=== PATIENT | female | born 1970 | race Caucasian/White ===

== ENCOUNTER 2017-10-29 03:07 | Observation (INO) | payer OTHER ==
[~2017-10-29] VITALS: Ht 167.6 cm; Wt 49.9 kg
[~2017-10-29 03:07] MED LIST: AMOXICILLIN875 M1 PO; BACTRIM DS TAB1 EACH PO; IBUPROFEN800 M1 PO
--- NOTE | 2017-10-29 10:35 | RADIOLOGY REPORT ---
EXAMINATION: XR HIP, RIGHT CLINICAL INFORMATION: Status post right total hip COMPARISON: CT pelvis 06/05/2017 TECHNIQUE: Two views of the right hip. FINDINGS: Right total hip prosthesis is present. There is some air in the subcutaneous tissues. The prosthesis appears to be in good position. No bony fractures are seen. IMPRESSION: The newly placed right hip prosthesis appears in good position without complication.
--- NOTE | 2017-10-29 10:36 | Admission Core Measures ---
Acute Coronary Syndrome (CM) ACS Core Measures Acute Coronary Syndrome Diagnosis No Congestive Heart Failure (NEW) CHF Core Measures Congestive Heart Failure Diagnosis No Cerebrovascular Accident CVA Core Measures CVA/TIA Diagnosis No Venous Thromboembolism VTE Core Michelle (View Protocol) VTE Risk Factors Surgery No Mechanical VTE Prophylaxis d/t N/A MechProphylax Ordered No VTE Pharm Prophylaxis d/t NA PharmProphylax ordered Problem List As ranked by this Provider includes Assessment & Plan 1. Unilateral primary osteoarthritis, right hip HOME MEDS Home Med List No Known Home Medications
[2017-10-29] MEDS ORDERED: COLACE100 M1 PO (10:43)
[2017-10-29] MEDS ORDERED: ASPIRIN EC81 M1 PO (10:43)
[2017-10-29] MEDS ORDERED: DILAUDID2 M1 PO (10:43)
[2017-10-29] MEDS ORDERED: MIRALAX17 G1 PO (10:43)
[2017-10-29] MEDS ORDERED: PRILOSEC OTC20 M1 PO (10:43)
[2017-10-29] MEDS ORDERED: MS CONTIN15 M3 PO (10:43)
--- NOTE | 2017-10-29 10:45 | Patient Discharge Instructions ---
Discharge Instructions General Discharge Information You were seen/treated for: Right hip pain related to unilateral primary osteoarthritis You had these procedures: Right total hip replacement Watch for these problems: Increasing pain despite the use of pain medication Increasing redness, warmth or swelling Drainage of any type from incision Inability to bear weight on operative leg Persistent nausea and vomiting Fever greater than 101.5 degrees Do not soak the wound: Yes No bath, but you may shower: Yes Other wound care: Please keep wound clean and dry. No ointments or lotions of any type on or near incision at any time. No exceptions. Your dressing will be changed by your nurse on the second day after your surgery. Daily dry dressing changes are recommended each day thereafter. Do not soak your wound in a bath or pool at any time until otherwise indicated by your surgeon. You may shower, please dry wound immediately after shower with a clean towel. Special Instructions: Aspirin: You are taking this medication to help prevent blood clot formation. Please take with food to protect your stomach lining. Please take as directed. Constipation: Pain medication can cause constipation. Your surgeon has recommended that you take Colace and miralax each day. You may discontinue this medication if you develop loose stool or diarrhea. If you wish to continue this medication, it is available over the counter. If you are unable to move your bowels after several days, if you are unable to pass gas and are developing bloating, nausea, or vomiting as a result, please contact your doctor. Diet Continue normal diet: Yes Recommended Diet: Regular Activity Full Activity/No Limits: No Activity Self Limited: Yes Pounds, do NOT lift more than: 10 Acute Coronary Syndrome Inclusion Criteria At DC or during hospital stay patient has or had the following: ACS DIAGNOSIS No Discharge Core Measures Meds if any: Prescribed or Continued at Discharge Meds if any: NOT Prescribed or Continued at Discharge Congestive Heart Failure Inclusion Criteria At DC or during hospital stay patient has or had the following: CHF DIAGNOSIS No Discharge Core Measures Meds if any: Prescribed or Continued at Discharge Meds if any: NOT Prescribed or Continued at Discharge Cerebrovascular accident Inclusion Criteria At DC or during hospital stay patient has or had the following: CVA/TIA Diagnosis No Discharge Core Measures Meds if any: Prescribed or Continued at Discharge Meds if any: NOT Prescribed or Continued at Discharge Venous thromboembolism Inclusion Criteria VTE Diagnosis No VTE Type NONE VTE Confirmed by (Test) NONE Discharge Core Measures - Per Current guidelines, there needs to be overlap - treatment for the first 5 days of Warfarin therapy. - If discharged on Warfarin prior to 5 days of - overlap therapy, the patient will need to be - assessed for post discharge needs including - *Post discharge parental anticoagulation - *Warfarin and/or parental anticoagulation education - *Follow up date to check INR post discharge At least 5 days overlap therapy as Inpatient No Meds if any: Prescribed or Continued at Discharge Note: Overlap Therapy is Warfarin and Anticoagulant Meds if any: NOT Prescribed or Continued at Discharge
--- NOTE | 2017-10-29 10:47 | Surgical Discharge Summary ---
Visit Information Visit Dates Admission Date: 10/29/17 Discharge Date: 10/29/17 History of Present Illness Chief Complaint: Right hip pain related to unilateral primary osteoarthritis Medical History Musculoskeletal: lyme Surgical History Pertinent Surgical History: non-contributory Psychosocial History What is Your Primary Language? Lao Review of Systems: See H&P Hospital Course Course Attending Physician: Krzysztof Stinson MD Primary Care Physician: Herbert Ariza MD Hospital Course: Patient was admitted to the hospital for an elective total joint replacement. The procedure was tolerated well and patient was transferred to a general surgical floor. Diet was advanced and tolerated. The patient was evaluated and treated by physical therapy. At the time of hospital discharge, the vital signs were stable, neurovascular status was intact, and pain was controlled with the use of oral pain medications. Complications: None Allergies: Coded Allergies: No Known Allergies (06/05/17) Disposition Summary Disposition Principal Diagnosis: Right hip unilateral primary osteoarthritis Additional Diagnosis: None Discharge Disposition: home health services Discharge Instructions General Discharge Information Code Status: Full Code Patient's Diet: Regular, advance as tolerated Patient's Activity: WBAT Follow-Up Instructions/Appts: Follow up with Dr. Stinson in 6 weeks from date of surgery. Please call office to arrange &/or confirm this appointment. Medications at Discharge Discharge Medications: Start taking the following new medications: Aspirin (Ecotrin*) 81 MG TABLET.DR 1 Tablet ORAL TWICE DAILY Qty = 60 No Refills Docusate Sodium (Colace) 100 MG CAPSULE 1 Capsule ORAL TWICE DAILY Qty = 14 No Refills Instructions: DISCONTINUE USE IF YOU DEVELOP LOOSE STOOL OR DIARRHEA Polyethylene Glycol 3350 (Miralax) 17 GRAM POWD.PACK 1 Packet ORAL DAILY Qty = 7 No Refills Instructions: dissolve in water, DISCONTINUE USE IF YOU DEVELOP LOOSE STOOL OR DIARRHEA Omeprazole Magnesium (Prilosec Otc) 20 MG TABLET.DR 1 Tablet ORAL DAILY Qty = 30 No Refills Hydromorphone HCl (Dilaudid) 2 MG TABLET 1-2 Tablet ORAL EVERY 4-6 HOURS NEEDED as needed for PAIN Qty = 36 No Refills Morphine Sulfate (Ms Contin) 15 MG TABLET.ER 1 Tablet ORAL TWICE DAILY Qty = 2 No Refills Copies To: Annita DAN,Herbert Valladares
--- NOTE | 2017-10-29 13:51 | PN- Orthopedic ---
Subjective Subjective: POST-OP NOTE No complaints. Reports some "soreness". Cleared by PT for discharge to home today. Tolerating diet. No nausea. Voided without difficulty. No dizziness. No shortness of breath. No chest pains. Anticipates discharge to home today. Objective Vital Signs and I&Os Intake & Output 10/29 1600 10/29 0800 10/29 0000 10/28 1600 10/28 0800 10/28 0000 Intake Total Output Total Balance Patient 110 lb 113 lb Weight Weight Standing Scale Measurement Method pacu flowsheet reviewed, vss Physical Exam: General - alert & oriented x 3. out of bed to bathroom. no acute distress. Lungs - clear bilaterally. no w/r/r. Cardiac - s1s2. reg. Abdomen - soft. nontender. Current Medications: Current Medications Sig/Casimiro Start time Last Medication Dose Route Stop Time Status Admin Acetaminophen 1,000 MG Q6 10/29 1200 AC 10/29 IV 10/30 0601 1305 Acetaminophen 0 .STK-MED ONE 10/29 0720 DC PO Acetaminophen 975 MG ONCE 10/29 0000 DC PO 10/29 2359 Aspirin Buffered 81 MG BID 10/29 2100 AC PO Dextrose/Sodium 1,000 ML .[id number] 10/29 1115 AC Chloride IV Docusate Sodium 100 MG BID 10/29 2100 AC PO Hydromorphone HCl 2 MG Q4P PRN 10/29 1115 AC PO Hydromorphone HCl 4 MG Q4P PRN 10/29 1115 AC 10/29 PO 1304 Morphine Sulfate 2 MG Q2P PRN 10/29 1115 AC IV Omeprazole 40 MG DAILY AC 10/30 0700 AC PO Ondansetron HCl 4 MG Q6P PRN 10/29 1115 AC IV Oxycodone HCl 0 .STK-MED ONE 10/29 0719 DC PO Oxycodone HCl 10 MG ONCE 10/29 0000 DC PO 10/29 2359 Polyethylene Glycol 17 GM DAILY 10/30 0900 AC PO Promethazine HCl 12.5 MG Q6P PRN 10/29 1115 AC IV 11/05 1029 Vancomycin HCl 1,000 MG Q12 10/29 2100 AC Sodium Chloride 250 ML IV 10/29 215 Vancomycin HCl 1,000 MG ONCE 10/29 0000 DC Sodium Chloride 250 ML IV 10/29 2359 Results Last 48 Hours of Labs: Laboratory Tests 10/29 0745 Urines Urine Test NEGATIVE Assessment/Plan Assessment/Plan This 47 year old female is POD#0 s/p right total hip replacement for hip pain related to unilateral primary osteoarthritis tolerating diet pain controlled cleared by PT for home asa bid - dvt ppx voided without difficulty stable for d/c home today case monitor assisted with arranging hhs will d/w Core Measures Venous Thromboembolism VTE Risk Factors Surgery No Mechanical VTE Prophylaxis d/t N/A MechProphylax Ordered No VTE Pharm Prophylaxis d/t NA PharmProphylax ordered
[2017-10-29 14:43] VITALS: BP 130/75
--- NOTE | 2017-10-29 16:31 | Operative Report ---
Operative/Inv Procedure Report Surgery Date: 10/29/17 Name of Procedure: Right total hip replacement Pre-Operative Diagnosis: Primary right hip DJD Post-Operative Diagnosis: Same Estimated Blood Loss: 250 Surgeon/Electrician Helper: Milad DAN,Krzysztof Goldberg Anesthesia: block Operative/Procedure Note Note: Description of Procedure: The patient was taken to the operating room and positively identified. After induction of spinal anesthesia and administration of appropriate pre-operative antibiotics, the patient was positioned supine on the operating room table and all bony prominences were well padded. After performing a surgical timeout, the right lower extremity was prepped and draped in the usual sterile fashion. A direct anterior approach was made to the right hip. The incision was carried sharply through superficial soft tissues to the level of the fascia. Meticulous hemostasis was maintained with Bovie electocautery. The fascia over the tensor fascia patrick muscle was opened sharply and the interval between the TFL and the sartorius was entered bluntly taking care to stay lateral to the lateral femoral cutaneous nerve. Retractors were placed around the femoral neck and the pericapsular fat was identified. The ascending branches of the lateral femoral circumflex vessels were identified and carefully coagulated. The pericapsular fat and anterior capsule were then resected. A napkin ring osteotomy was performed and the femoral head was removed without difficulty. Attention was then turned to the acetabulum. After appropriate placement of retractors, the acetabulum was exposed. Soft tissue was cleaned from the acetabular margin and notch. Overhanging osteophytes were removed and the teardrop was exposed. The acetabulum was then sequentially reamed to accept a 52 mm Jacek Tritanium hemispherical solid shell. This was impacted into place in the appropriate position and fitted with a 32 mm Trident X3 zero degree polyethylene insert. Attention was then turned to the femur. After performing the appropriate ligament releases, the proximal femur was exposed. It was then sequentially broached to accept a size 3 Jacek Accolade 2 stem. This was trialed for leg length and stability. The trial component was removed and the final component was impacted into place. The trunnion was carefully cleaned and fit with a 32 mm, +0 Biolox delta ceramic femoral head. The hip was reduced and put through a full range of motion and found to be stable. The articular space was then irrigated with sterile saline. The periarticular soft tissues were infilitrated with Marcaine. The fascial layer was closed with interrupted #1 vicryl suture and the skin was re-approximated with interrupted 2 -0 vicryl. The skin was closed with a running 3-0 V-Lock suture. Steri-strips and a sterile dressing were applied. The patient was awakened and taken to the recovery room in satisfactory condition.
== END 2017-10-29 16:15 | disposition home health service (06) ==
LOC: STS 03:07 → EDSTATUS 07:00 → STS 07:00 → 2NA 09:38 → PACUH 09:38 → 2NA 09:38 → ENRESERV 10:06 → ENTRNSPT 10:40 → EDTRNSPTSTS 10:45 → EDTRNSPT 10:45 → 2NA 10:52 → CMPTRNSPT 11:26 → 2NA 13:33 → ENPENDDIS 14:02 → 2NA 16:15
DX: M16.11 Unilateral primary osteoarthritis, right hip (principal); F17.200 Nicotine dependence, unspecified, uncomplicated; Z86.14 Personal history of Methicillin resistant Staphylococcus aureus infection
CPT/HCPCS: 73502-RT; 81025; 88304; 96374; 97116-GO; 97116-GP; 97161-GP; J0131; J0690; J0735; J2405; J2550; J3370; J7040